=== PATIENT | male | born 1960 | race Caucasian/White ===

== ENCOUNTER → 2017-06-10 | Outpatient (CLI) | payer BC | LOC: PREOP 05:41 | PROVIDERS: ATTEND Internal Medicine | DX: Z01.818 Encounter for other preprocedural examination (principal); Z12.11 Encounter for screening for malignant neoplasm of colon ==

== ENCOUNTER 2017-09-20 12:00 | Outpatient (CLI) | payer BC ==
[~2017-09-20] VITALS: Ht 180.3 cm; Wt 106.6 kg
[~2017-09-20 12:00] MED LIST: DOXA2TAB2 PO; VENL150C98 PO
== END 2017-09-20 12:36 ==
LOC: PREOP 12:00
PROVIDERS: ATTEND Internal Medicine
DX: Z01.818 Encounter for other preprocedural examination (principal); Z12.11 Encounter for screening for malignant neoplasm of colon

== ENCOUNTER 2017-09-23 07:55 | Day surgery (SDC) | payer BC ==
--- NOTE | 2017-09-13 10:43 | HISTORY AND PHYSICAL ---
DATE OF SERVICE: COLONOSCOPY HISTORY AND PHYSICAL DATE OF ADMISSION: 09/23/2017. HISTORY OF PRESENT ILLNESS: The patient is a 57-year-old white male seen in the office for followup of hypertension and depression. He is in need of screening colonoscopy. He is deemed to be of higher than average risk as he has a brother, who was diagnosed with colon cancer at the age of 40. The patient had undergone one other colonoscopy in 2003 that was unremarkable. We had attempted to set him up earlier for colonoscopy, but due to busy farming schedule, he had to postpone. He reports all in all he has been feeling well and his depression is under good control. He feels it to be in remission. He has a history of prostatism with several past bouts of prostatitis. Reports stable nocturia on doxazosin for which he is receiving for this as well as hypertension. He has had no pelvic pain, abdominal pain, bowel habit change, bright red blood per rectum or melena. PAST MEDICAL HISTORY: Significant for hypertension, several bouts of prostatitis as noted above and major depressive disorder for which he is currently on 75 mg of Effexor daily. PAST SURGICAL HISTORY: He has had no significant past surgeries. SOCIAL HISTORY: He is an active cano, who has no past smoking history. He had been drinking three to four beers most days of the week for quite a few years, but gave this up and has noted improvement in physical and mental health. He has also noted weight loss over the past three or four months since doing this and in our office, he was down 7 pounds compared to 2 months ago and 11 pounds compared to same time last year. FAMILY HISTORY: He has one brother morbidly obese with type 2 diabetes mellitus, still living. He had one other brother still living diagnosed with colon cancer at the age of 40. Mother is living at the age of 86 and is obese with hypertension and father at age 87 secondary to coronary artery disease and type 2 diabetes mellitus and also had history of dementia likely Alzheimer's. PHYSICAL EXAMINATION: GENERAL: Reveals a pleasant and overweight otherwise well appearing white male in no acute distress. VITAL SIGNS: Blood pressure 130/80, heart rate 72 and regular. NECK: Revealed no JVD, adenopathy or bruits. HEENT: He has a Mallampati class 3 oropharyngeal configuration. CHEST: Clear to auscultation. CARDIOVASCULAR: Regular rate and rhythm without murmur, S3 or S4. ABDOMEN: Soft, supple without mass, organomegaly or tenderness. EXTREMITIES: Reveal no cyanosis, clubbing or edema. ASSESSMENT: The patient is set up for screening colonoscopy deemed to be higher than average risk due to 1. First degree relative with history of early colon cancer. Brother diagnosed at the age of 40. Prep instructions with the Suprep kit were given and questions were answered. 2. Major depressive disorder in remission. 3. Hypertension. Under good control on 2 mg of doxazosin daily. 4. Prostatism. 5. Not mentioned above stable mechanical low back pain. The patient occasionally takes Tylenol. Denies any radicular symptoms and then after getting out of bed, is able to limber up relatively quickly, only reporting symptoms that if he is inactive or longer car trips later on the day. We will see him back in followup in 6 months with repeat chemistry and lipid panel for screening purposes. Job ID: [id number] DocumentID: [id number] Dictated Date: 09/13/2017 10:14:30 Arts And Crafts Instructor Date: 09/13/2017 10:42:42 Dictated By: JON ODOM MD
[~2017-09-23] VITALS: Ht 180.3 cm; Wt 106.6 kg
--- OUTSIDE RECORDS SUMMARY | 2017-09-23 07:58 | XMS REPORT | Continuity of Care Document ---
Demographics x Preferred Language Unknown Marital Status Unknown Yazidi Affiliation Unknown Race Unknown Ethnic Group Unknown Author Author [facility] Organization [facility] Address Unknown Phone Unavailable Allergies Active Description Code Type Severity Reaction Onset Reported/Identified Relationship to Patient Clinical Status Yes penicillin Drug N/A N/A Yes erythromycin base [id number] Drug Allergy Unknown RASH 09/20/2017 Yes Penicillins [id number] Drug Allergy Unknown RASH 09/20/2017 Medications There is no data. Problems Date Dx Coded Attending Type Code Diagnosis Diagnosed By 05/03/2013 DAIJA BRAGG 959.4 HAND INJURY NOS 05/03/2013 DAIJA BRAGG E918 CAUGHT BETWEEN OBJECTS 06/13/2017 JON ODOM MD Ot Z01.818 ENCOUNTER FOR OTHER PREPROCEDURAL EXAMIN 06/13/2017 JON ODOM MD Ot Z12.11 ENCOUNTER FOR SCREENING FOR MALIGNANT NE 09/19/2017 JON ODOM MD Ot Z01.818 ENCOUNTER FOR OTHER PREPROCEDURAL EXAMIN 09/19/2017 JON ODOM MD Ot Z12.11 ENCOUNTER FOR SCREENING FOR MALIGNANT NE 09/20/2017 JON ODOM MD Ot Z01.818 ENCOUNTER FOR OTHER PREPROCEDURAL EXAMIN 09/20/2017 JON ODOM MD Ot Z12.11 ENCOUNTER FOR SCREENING FOR MALIGNANT NE 09/21/2017 JON ODOM MD Ot Z01.818 ENCOUNTER FOR OTHER PREPROCEDURAL EXAMIN 09/21/2017 JON ODOM MD Ot Z12.11 ENCOUNTER FOR SCREENING FOR MALIGNANT NE Procedures Code Description [place] [address] X-RAY EXAM OF FINGER(S) 05/03/2013 Results There is no data. Encounters ACCT No. Visit Date/Time Discharge Status Pt. Type Provider Facility Loc./Unit Complaint [id number] 05/03/2013 17:25:00 05/03/2013 17:25:00 DIS Outpatient DAIJA BRAGG [facility] RAD [id number] 09/20/2017 12:00:00 09/20/2017 12:36:00 DIS Outpatient [facility] [place] [facility] COLON[facility] [id number] 06/17/2017 12:45:00 06/17/2017 23:59:59 CLS Preadmit JON ODOM MD [facility] ENDO SCREENING [id number] 06/10/2017 05:41:00 06/10/2017 23:59:59 CLS Outpatient JON ODOM MD [facility] PREOP COLONOSCOPY [id number] 07/30/2017 07:44:00 07/30/2017 10:35:00 DIS Emergency ANETTE GRAY [facility] DANIEL ED ed visit [id number] 06/08/2017 09:34:09 06/08/2017 23:59:59 DIS Outpatient Tracee Stevenson [facility] [id number] 05/09/2017 16:07:22 05/09/2017 23:59:59 DIS Outpatient Marni Liao Rashida [facility] [id number] 04/25/2017 16:10:00 04/25/2017 23:59:59 CLS Outpatient Marni Liao Rashida [facility] [id number] 04/07/2017 13:11:02 04/07/2017 23:59:59 DIS Outpatient Marni Liao Rashida [facility] [id number] 04/29/2016 13:36:58 04/29/2016 23:59:59 CLS Outpatient DOMINGO YOUSIF [facility]
[2017-09-23] MEDS ORDERED: D5 LR IV SOLUTION 1,000 ML IV ONE (08:14)
[2017-09-23 08:53] VITALS: BP 111/81
[2017-09-23] MEDS ORDERED: MIDAZOLAM 2 MG/2 ML (VERSED) VIAL IVP PRN (09:00)
--- NOTE | 2017-09-23 09:28 | Pre-Op Note & Conscious Sedat ---
Pre-Operative Progress Note H&P Reviewed The H&P was reviewed, patient examined and no changes noted. Date H&P Reviewed: Sep 23, 2017 Time H&P Reviewed: 09:27 Conscious Sedation Pre-Proced ASA Class: 2 Airway Mallampati Classification: ([place] appropriate class) I. II. III, IV Lungs Heart ASA score ASA 1: a normal healthy patient ASA 2: a patient with a mild systemic disease (mid diabetes, controlled hypertension, obesity ASA 3: a patient with a severe systemic disease that limits activity (angina , COPD, prior Myocardial infarction) ASA 4: a patient with an incapacitating disease that is a constant threat to life (CHF, renal failure) ASA 5: a moribund patient not expected to survive 24 hrs. (ruptured aneurysm) ASA 6: a declared brain patient whose organs are being harvested. For emergent operations, add the letter E after the classification Grade 3 Sedation Plan: Analgesia, Amnesia, Plan communicated to team members, Discussed options with patient/fam, Discussed risks with patient/fam Note The patient is an appropriate candidate to undergo the planned procedure, sedation, and anesthesia. The patient immediately re-assessed prior to indication. JON ODOM MD Sep 23, 2017 09:27
[2017-09-23] MEDS ORDERED: LIDOCAINE JELLY 2% (XYLOCAINE) 5 ML TUBE ONE (09:34)
[2017-09-23] MEDS ORDERED: fentaNYL INJECTION 100 MCG/2 ML AMP ONE (09:34)
[2017-09-23] MEDS ORDERED: MIDAZOLAM 2 MG/2 ML (VERSED) VIAL ONE ×2 (09:35)
[2017-09-23] MEDS: fentaNYL INJECTION 100 MCG/2 ML AMP IVP PRN ×2 (09:39→09:42)
[2017-09-23] MEDS ORDERED: D5 LR IV SOLUTION 1,000 ML IV STA (09:40)
[2017-09-23] MEDS ORDERED: LIDOCAINE JELLY 2% (XYLOCAINE) 5 ML TUBE MM PRN (10:30)
[2017-09-23 10:40] VITALS: BP 113/73
[2017-09-23 11:05] VITALS: BP 125/79
--- NOTE | 2017-09-23 16:57 | OPERATIVE REPORT ---
DATE OF SERVICE: COLONOSCOPY SUMMARY INDICATION FOR THE PROCEDURE: Screening colonoscopy. I am his primary care physician. DESCRIPTION OF PROCEDURE: The patient was placed in the left lateral decubitus position. Prior to undergoing colonoscopy, digital rectal evaluation was performed. Anal sphincter tone was normal and the perianal reflexes intact. Prostate is mildly enlarged, anodular and nontender to digital inspection. No other abnormalities noted to digital inspection of the anal canal or distal rectal vault. The colonoscope was then inserted into the rectum and under direct visualization advanced to the cecum. The cecum was identified by identification of the ileocecal valve and cecal strap as well as appendiceal orifice. Photographic documentation was obtained. Careful inspection was made as the colonoscope was withdrawn. The quality of the prep was fair. FINDINGS: There was no evidence for internal or external hemorrhoids and the rectum, sigmoid colon, descending colon, splenic flexure, transverse colon, hepatic flexure, ascending colon and cecum were unremarkable. ASSESSMENT: Normal colonoscopy to the cecum. Digital rectal evaluation was compatible with mild benign prostatic hypertrophy. As the patient is not aware of any family history of colon cancer, we will be abdicating consideration for repeat screening colonoscopy in 10 years. Job ID: [id number] DocumentID: [id number] Dictated Date: 09/23/2017 12:28:39 Fruit Vendor Date: 09/23/2017 16:56:49 Dictated By: JON ODOM MD
== END 2017-09-23 11:08 | disposition home or self-care (01) ==
LOC: ENDO 07:55
PROVIDERS: ATTEND Internal Medicine
DX: Z12.11 Encounter for screening for malignant neoplasm of colon (principal); N40.0 Benign prostatic hyperplasia without lower urinary tract symptoms; I10 Essential (primary) hypertension; Z80.0 Family history of malignant neoplasm of digestive organs

== ENCOUNTER → 2020-04-22 | Outpatient (CLI) | payer BC ==
--- NOTE | 2020-04-22 10:38 | Diagnostic Imaging Report ---
EXAMINATION: CT Abdomen Pelvis without contrast. TECHNIQUE: Multiple contiguous axial images were obtained through the abdomen and pelvis without the use of intravenous contrast. All CT scans use one or more of the following dose optimizing techniques: automated exposure control, MA and/or KvP adjustment based on a patient size and exam type, or iterative reconstruction. HISTORY: Prostate cancer. COMPARISON: None available. FINDINGS: Lung bases: There are multiple bilateral subpleural pulmonary nodules measuring up to 0.4 cm (series 2 image 13). Solid organs: The liver is normal. The gallbladder is normal. There is no biliary ductal dilation. Pancreas is normal. Spleen is normal. Adrenal glands are normal. The kidneys are normal without visualized calculus or hydronephrosis. Bowel: The stomach and small bowel are normal without obstruction. There is scattered colonic diverticulosis. The appendix is normal. Peritoneum: There is no intraperitoneal free fluid or free air. No suspicious lymphadenopathy. Vasculature: Normal without aneurysm. Musculoskeletal: Degenerative changes of the spine without suspicious osseous lesion or compression fracture. Pelvis: The prostate gland is normal. The urinary bladder is normal. IMPRESSION: 1. No findings of metastatic disease within the abdomen or pelvis. 2. Bilateral subpleural pulmonary nodules measuring up to 0.4 cm. Dictated by: Dictated on workstation # [id number]
--- NOTE | 2020-04-22 14:03 | Diagnostic Imaging Report ---
Whole body bone scan at 1233h. INDICATION: Prostate cancer, injury to left foot This study was performed following administration of 27.1 mCi at 99m technetium MDP. Anterior and posterior whole body images were obtained. There are no prior nuclear medicine studies for comparison. There is intense uptake in the mid/hindfoot of the left foot. This may related to an acute or subacute bony injury. If further evaluation is desired, then a plain film examination of the left foot should be obtained. There is generalized distribution of the radiotracer throughout the skeleton otherwise. There is no focal area of increased or decreased activity to suggest metastatic disease. Both kidneys do show excretion of the radiotracer. IMPRESSION: 1. The intense uptake in the mid/hindfoot on the left does suggest an acute/subacute bony injury. Recommendations as above. 2. There is no other abnormal uptake to indicate an acute abnormality and there is no sign of metastatic disease. Dictated by: Dictated on workstation # [id number]
== END ==
LOC: CARD 12:00
PROVIDERS: ATTEND Urology
DX: C61 Malignant neoplasm of prostate (principal); R91.8 Other nonspecific abnormal finding of lung field
CPT/HCPCS: 74176; 78306; A9503